=== PATIENT | male | born 1960 | race American Indian/Alaskan Native ===

== ENCOUNTER 2020-01-31 08:03 | Day surgery (SDC) | payer MEDICARE ==
[~2020-01-31 08:03] MED LIST: GELATIN SPONGE SIZE 100 TP ONE; HEPARIN 10,000 UNITS/10 ML VIAL IV ONE; SODIUM CHLORIDE 0.9% 1000 ML 1,000 ML IV SCH; SODIUM CHLORIDE 0.9% 250 ML IVPB IV ONE; SODIUM CHLORIDE 0.9% IRR 1,500 ML BOTTLE IR ONE; THROMBIN (RECOMBINANT) 5,000 UNIT VIAL TP ONE; ceFAZolin/Water 2 GM/20 ML 2 GM/20 ML SYRINGE IV NR
[2020-01-31] MEDS ORDERED: ceFAZolin/STERILE WATER 2 GM/20 ML SYRINGE IV NR (09:00)
[2020-01-31 09:21] LABS: Hematocrit 35.2 % (35.5-45.6); Hemoglobin 11.8 gm/dl (11.8-15.2); Mean Corpuscular HGB Conc 34 % (32-34); Mean Corpuscular Volume 83 fl (84-94); Platelet Count 169 K/mm3 (140-440); Red Blood Count 4.26 M/mm3 (3.65-5.03); Red Cell Distribution Width 16.5 % (13.2-15.2)
[2020-01-31 09:37] LABS: Calcium 8.6 mg/dL (8.4-10.2)
--- NOTE | 2020-01-31 09:57 | Anesthesia Day of Surgery ---
Anesthesia Day of Surgery - Day of Surgery Patient Examined: Yes Patient H&P Reviewed: Yes Patient is NPO: Yes
--- NOTE | 2020-01-31 09:57 | Anesthesia Consultation ---
Anesthesia Consult and Med Hx - Airway Anesthetic Teeth Evaluation: Good, Chipped ROM Head & Neck: Adequate Mental/Hyoid Distance: Adequate Mallampati Class: Class II Intubation Access Assessment: Good - Pulmonary Exam CTA: Yes - Cardiac Exam Cardiac Exam: RRR - Pre-Operative Health Status ASA Pre-Surgery Classification: ASA3 Proposed Anesthetic Plan: General Nerve Block: Left Brachial Plexus. Interscalene - Cardiovascular System Hx Hypertension: Yes - Central Nervous System Hx Psychiatric Problems: No - Endocrine Hx Renal Disease: Yes Hx End Stage Renal Disease: Yes - Other Systems Hx Cancer: No
[2020-01-31] MEDS ORDERED: fentaNYL 100 MCG/2 ML INJ IV ONE (10:00)
[2020-01-31] MEDS ORDERED: MIDAZOLAM 2 MG/2 ML INJ IV NR (10:00)
--- NOTE | 2020-01-31 10:17 | Event Note ---
Date: 01/31/20 Block Note Interscalene/Brachial Plexus Block Left Side After time out, the area was prepped and draped in the usual fashion. Iv sedation of Versed 2 mg and Fentanyl 50 mcg. Brachial plexus located under US guidance and needle location verified with stimulation at 0.5 mAMP. 20 ml of 0.5 % Ropivacaine injected in 5 ml increments and negative aspiration for blood. VSS. Pt tolerated procedure well.
[2020-01-31] MEDS ORDERED: HEPARIN 10,000 UNITS/10 ML VIAL ONE (11:53)
[2020-01-31] MEDS ORDERED: LIDOCAINE (1%) 10 MG/1 ML VIAL 20 ML MDV ONE (11:53)
[2020-01-31] MEDS ORDERED: THROMBIN (RECOMBINANT) 5,000 UNIT VIAL TP ONE ×2 (11:54→14:29)
[2020-01-31] MEDS ORDERED: SODIUM CHLORIDE 0.9% 250ML 250 ML ONE (11:54)
[2020-01-31] MEDS ORDERED: PROTAMINE SULFATE 50 MG/5 ML INJ ONE (11:54)
[2020-01-31] MEDS ORDERED: GELATIN SPONGE SIZE 100 TP ONE ×2 (11:54→14:29)
[2020-01-31] MEDS ORDERED: BUPIVACAINE-EPINEPHRINE/PF 0.25%-1:200,000 (30 ML) VIAL INFILTRATI ONE (12:00)
[2020-01-31] MEDS ORDERED: LIDOCAINE 1%/EPINEPHRINE 1:100,000 VIAL (20 ML) INFILTRATI ONE (12:00)
[2020-01-31] MEDS ORDERED: fentaNYL 100 MCG/2 ML INJ ONE ×3 (12:03→13:09)
[2020-01-31] MEDS ORDERED: propofoL 200 MG/20 ML VIAL IV ONE (12:03)
[2020-01-31] MEDS ORDERED: ONDANSETRON 4 MG/2 ML INJ ONE (12:07)
[2020-01-31] MEDS ORDERED: LIDOCAINE MPF (2%) 20 MG/1 ML VIAL 5 ML ONE (12:07)
[2020-01-31] MEDS ORDERED: GLYCOPYRROLATE 0.4 MG/2 ML INJ ONE (12:07)
[2020-01-31] MEDS ORDERED: PHENYLEPHRINE/NS 1,000 MCG/10 ML SYRINGE (OR USE) IV ONE (12:07)
[2020-01-31] MEDS ORDERED: SODIUM CHLORIDE 0.9% IRR 1,500 ML BOTTLE IR ONE (13:27)
[2020-01-31] MEDS ORDERED: HEPARIN 10,000 UNITS/10 ML VIAL IV ONE (14:00)
[2020-01-31] MEDS ORDERED: SODIUM CHLORIDE 0.9% 250 ML IVPB IV ONE (14:00)
[2020-01-31] MEDS ORDERED: oxyCODONE /ACETAMINOPHEN 5-325MG TAB PO PRN (15:17)
--- NOTE | 2020-01-31 15:17 | Post Operative Note ---
Date of procedure: 01/31/20 Pre-op diagnosis: ESRD Post-op diagnosis: same Procedure: Left Arm Basilic Vein Transposition Anesthesia: GETA Surgeon: JONATHON BOWEN Estimated blood loss: other (25ml) Pathology: none Condition: stable Disposition: PACU (v)
--- NOTE | 2020-01-31 15:20 | Short Stay Summary ---
Short Stay Documentation Date of service: 01/31/20 - History H&P: obtained from office Past Medical History: ESRD, hypertension - Allergies and Medications Current Medications: Allergies cinacalcet [From Sensipar] Allergy (Verified 01/30/20 09:58) Stinging snesations hydralazine Allergy (Verified 01/30/20 09:58) Increased heart rate morphine Allergy (Verified 01/30/20 09:58) N&V nitroglycerin Allergy (Verified 01/30/20 09:58) N&V sevelamer [From Renvela] Allergy (Verified 01/30/20 09:58) Stinging sensations tuberculin, purified protein deriva Allergy (Verified 01/30/20 09:58) Rash Home Medications Medication Instructions Recorded Confirmed Last Taken Type Aspirin [Adult Aspirin] 81 mg PO DAILY 01/30/20 01/31/20 01/29/20 09:00 History Clonidine HCl [Catapres] 0.3 mg PO BID 01/30/20 01/31/20 01/31/20 01:00 History Ferric Citrate (Nf) [Auryxia] 210 mg PO TIDAC 01/30/20 01/31/20 01/30/20 15:00 History NIFEdipine [Nifedipine ER] 60 mg PO TID 01/30/20 01/31/20 01/31/20 01:00 History minoxidiL [Loniten] 10 mg PO TID 01/30/20 01/31/20 01/31/20 01:00 History Active Medications Cefazolin Sodium (Ancef/Sterile Water 2 Gm/20 Ml) 2 gm IV PREOP NR Stop: 01/31/20 23:59 Sodium Chloride (Nacl 0.9% 1000 Ml) 1,000 mls @ 42 mls/hr IV DIRECT ZARI Last Admin: 01/31/20 09:10 Dose: 42 mls/hr Documented by: Midazolam HCl (Versed) 2 mg IV PREOP NR Stop: 01/31/20 23:59 Last Admin: 01/31/20 10:03 Dose: 2 mg Documented by: - Physical exam General appearance: no acute distress Lungs: Normal air movement Extremities: no ischemia - Hospital course Hospital course: the patient was taken to the operating room and had a left arm av fistula creation performed. please refer to the operative note concerning details of the procedure. the patient tolerated the procedure well and was discharged home in stable condition. - Disposition Condition at discharge: Stable Disposition: [id number] TO HOME OR SELFCARE - Discharge Diagnoses (1) ESRD (end stage renal disease) on dialysis Status: Acute (2) ESRD (end stage renal disease) on dialysis Status: Acute Short Stay Discharge Plan Follow up with: PRIMARY CAREMD [Primary Care Provider] - 7 Days
[2020-01-31] MEDS ORDERED: ONDANSETRON 4 MG/2 ML INJ IV PRN (15:21)
[2020-01-31] MEDS: HYDROmorphone 1 MG/1 ML INJ IV PRN ×3 (15:22→15:51)
[2020-01-31] MEDS ORDERED: HYDROmorphone 1 MG/1 ML INJ ONE (15:23)
--- NOTE | 2020-01-31 16:17 | Post Anesthesia Evaluation ---
- Post Anesthesia Evaluation Patient Participated: Yes Airway Patent: Yes Stable Respiratory Function: Yes Nausea/Vomiting: No Temp > 96.8F: Yes Pain Manageable: Yes Adequeate Hydration: Yes Anesthesia Complications: No
[2020-01-31 16:18] VITALS: BP 119/72
--- NOTE | 2020-01-31 16:36 | Operative Report ---
STAFF SURGEON: Dr. Waylon Borja. PREOPERATIVE DIAGNOSIS: End-stage renal disease. POSTOPERATIVE DIAGNOSIS: End-stage renal disease. PROCEDURE PERFORMED: Left arm basilic vein transposition. COMPLICATIONS: None. ESTIMATED BLOOD LOSS: 25 mL. ANESTHESIA: General. INDICATIONS FOR PROCEDURE: This is a 59-year-old gentleman with end-stage renal disease, on hemodialysis via an IJ PermCath, in need of an extremity dialysis access. The patient had preoperative vein mapping, which demonstrated adequate veins in the left upper extremity and had a previously failed radiocephalic AV fistula. Therefore, the patient was thought to be able to undergo fistula creation in the left upper arm. The patient was explained the risks, benefits and alternatives of procedure, expressed understanding and wished to proceed. DESCRIPTION OF PROCEDURE: After appropriate consent was obtained, the patient was brought back to the operating room and placed on the operating table in a supine position with left arm extended. The patient was given appropriate medication for general anesthesia, was intubated without difficulty. Left arm was prepped and draped in the usual sterile fashion with ChloraPrep. Appropriate preoperative antibiotics were administered. Appropriate timeout was performed indicating correct patient, procedure, and site of procedure. We then began the operation by making a longitudinal incision in the medial left upper arm. This was carried through the subcutaneous tissue with a combination of blunt dissection and electrocautery. The basilic vein was identified. Our incision was then extended towards the axilla. The basilic vein was exposed and mobilized in its entirety. The branches of the basilic vein were ligated with a silk suture and then transected. Once the entire length of the basilic vein was mobilized, the anterior surface was marked. Our catheter was placed in the proximal upper arm and mosquito clamps were then placed distally. The vein was then transected. The stump was ligated with silk suture. The vein was then flushed with heparinized saline. We then proceeded to expose the brachial artery in the distal aspect of the incision and just lateral by going through the bicipital aponeurosis and exposing the brachial artery for an appropriate distance both proximally and distally. After adequate mobilization, we then proceeded to create a subcutaneous tunnel lateral to our incision and brought through the basilic vein, making sure to avoid any twisting or kinking. The vein was appropriately spatulated. The patient was given 5000 units of unfractionated heparin. After appropriate time had elapsed, vascular clamps were placed on the brachial artery, both proximally and distally. Longitudinal arteriotomy was made with an 11 blade and extended with Harrison scissors. Then, an end-to-side anastomosis was performed with a running 6-0 Prolene suture. Once complete, again flow was established through the AV fistula, had a nice palpable thrill. We then looked to obtain hemostasis along our suture line, which was obtained with hemostatic agents. Once we were satisfied with hemostasis, we then proceeded to appropriately approximate the deep subcutaneous layer with interrupted 3-0 PDS and the skin was approximated with clement. Appropriate dressing was placed. The patient tolerated the procedure well, emerged from the general anesthesia, was extubated in the operating room and sent to recovery in stable condition. All of the sponge, instrument and needle counts were correct at completion of the operation. JOB# [id number] BRAYDEN/LOC
== END 2020-01-31 16:44 | disposition home or self-care (01) ==
LOC: OR 08:03
PROVIDERS: ATTEND Surgery Vascular Surgery
DX: I12.0 Hypertensive chronic kidney disease with stage 5 chronic kidney disease or end stage renal disease (principal); N18.6 End stage renal disease; Z88.5 Allergy status to narcotic agent; Z79.899 Other long term (current) drug therapy; Z79.82 Long term (current) use of aspirin; Z99.2 Dependence on renal dialysis; Z98.890 Other specified postprocedural states; Z86.2 Personal history of diseases of the blood and blood-forming organs and certain disorders involving the immune mechanism; Z88.8 Allergy status to other drugs, medicaments and biological substances
CPT/HCPCS: 36415; 36819; 80048; 85027; 93005; A4649; J0690; J1170; J1644; J2250; J2370; J2405; J2704; J2720; J3010; J7030; J7050